=== PATIENT | male | born 1945 | race Caucasian/White ===

== ENCOUNTER 2018-09-18 06:15 | Emergency (ER) | payer OTHER, BC ==
[~2018-09-18] VITALS: Ht 175.3 cm; Wt 81.7 kg
[2018-09-18] MEDS ORDERED: LEVO-T25 MCG PO (06:23)
[2018-09-18] MEDS ORDERED: ASPIR 8181 MG PO (06:23)
[2018-09-18] MEDS ORDERED: NORVASC5 MG PO (06:24)
[2018-09-18] MEDS ORDERED: LISINOPRIL20 MG PO (06:24)
[2018-09-18 06:36] LABS: ABSOLUTE NEUTROPHILS 11.7 thou/uL (1.4-8.2); BASOPHILS 0.2 % (0.0-2.0); EOSINOPHILS 0.1 % (0.0-3.0); HEMATOCRIT 38.3 % (42.0-52.0); MCH 29.4 pg (26.0-34.0); MCHC 33.9 g/dL (28.0-37.0); MCV 86.8 fL (80.0-100.0); MONOCYTES 7.8 % (1.0-8.0); PLATELET COUNT 217 thou/uL (150-400); POLYS 85.9 % (36.0-66.0); RBC 4.41 mil/uL (4.50-6.00); RDW 14.2 % (10.5-14.5); WBC 13.6 thou/uL (4.0-11.0)
[2018-09-18 06:44] LABS: CREATININE 1.1 mg/dL (0.7-1.3)
[2018-09-18 06:50] LABS: ALBUMIN 3.3 g/dL (3.4-5.0); TOTAL BILIRUBIN 0.4 mg/dL (<0.1-1.0); TOTAL PROTEIN 7.3 g/dL (6.4-8.2)
[2018-09-18] MEDS ORDERED: ZOFRAN ODT4 MG PO (09:31)
[2018-09-18] MEDS ORDERED: FLAGYL500 M1 PO (09:31)
[2018-09-18] MEDS ORDERED: NORCO 5-325 TA1 EACH PO (09:31)
[2018-09-18] MEDS ORDERED: CIPROFLOXACIN500 M1 PO (09:31)
[2018-09-18 09:50] VITALS: BP 140/63
== END 2018-09-18 16:59 | disposition home or self-care (01) ==
LOC: ER 06:15
PROVIDERS: Emergency Medicine
DX: K57.92 Diverticulitis of intestine, part unspecified, without perforation or abscess without bleeding (principal); R19.7 Diarrhea, unspecified; M10.9 Gout, unspecified